=== PATIENT | male | born 1975 | race American Indian/Alaskan Native ===

== ENCOUNTER 2017-10-11 23:20 | Emergency (ER) | payer OTHER ==
[2017-10-11 23:38] VITALS: RESP 17; TEMP 97.8; O2SAT 98
--- NOTE | 2017-10-12 01:40 | ED PDOC ---
HPI: Back Time Seen by Provider: 10/12/17 00:44 Chief Complaint (Nursing): Back Pain Chief Complaint (Provider): Back Pain History Per: Patient History/Exam Limitations: no limitations Onset/Duration Of Symptoms: Days (x2) Current Symptoms Are (Timing): Still Present Additional Complaint(s): Wing Nesbitt is a 42 year old male with a past medical history of asthma who is presenting to the ED with complaints of lower back pain, onset 2 days ago after lifting a heavy cooler. Patient states that the back pain is worse with movement and bending but is alleviated with rest. He denies any urinary symptoms, nausea, vomiting, or fevers. PMD: Antoni Jose Past Medical History Reviewed: Historical Data, Nursing Documentation, Vital Signs Vital Signs: Last Vital Signs Temp 97.8 F 10/11/17 23:31 Pulse 70 10/11/17 23:31 Resp 17 10/11/17 23:31 BP 123/77 10/11/17 23:31 Pulse Ox 98 10/11/17 23:31 - Medical History PMH: Asthma - Surgical History Surgical History: No Surg Hx - Family History Family History: States: Unknown Family Hx - Social History Current smoker - smoking cessation education provided: No Alcohol: Social Drugs: Denies - Home Medications Home Medications: Ambulatory Orders Medication Instructions Recorded Ciprofloxacin/Ciprofloxa HCl 500 mg PO BID #14 tab 03/07/14 [Ciprofloxacin] Ibuprofen [Motrin] 600 mg PO Q8 PRN #20 tab 03/07/14 Ciprofloxacin [Cipro] 1 tab PO BID #14 tab 05/21/15 Cyclobenzaprine [Flexeril] 5 mg PO Q8 PRN #15 tab 05/21/15 Ibuprofen [Motrin] 600 mg PO Q6H PRN #5 tab 05/21/15 Cyclobenzaprine [Cyclobenzaprine 10 mg PO BID #15 tab 10/12/17 HCl] Lidocaine 1 each TP DAILY #10 adh..patch 10/12/17 Naproxen [Naprosyn] 500 mg PO BID #30 tablet 10/12/17 Nitrofurantoin Macrocrystals 100 mg PO BID 5 Days cap 10/12/17 [Macrobid] - Allergies Allergies/Adverse Reactions: Allergies Allergy/AdvReac Type Severity Reaction Status Date / Time No Known Allergies Allergy Verified 05/21/15 12:49 Review of Systems ROS Statement: Except As Marked, All Systems Reviewed And Found Negative Constitutional: Positive for: Fever Gastrointestinal: Negative for: Nausea, Vomiting Genitourinary Male: Negative for: Other (urinary symptoms) Musculoskeletal: Positive for: Back Pain Physical Exam - Reviewed Nursing Documentation Reviewed: Yes Vital Signs Reviewed: Yes - Physical Exam Appears: Positive for: Non-toxic, No Acute Distress Head Exam: Positive for: ATRAUMATIC, NORMAL INSPECTION, NORMOCEPHALIC Skin: Positive for: Normal Color, Warm, DRY Eye Exam: Positive for: EOMI, Normal appearance, PERRL ENT: Positive for: Normal ENT Inspection Neck: Positive for: Normal Cardiovascular/Chest: Positive for: Regular Rate, Rhythm. Negative for: Murmur Respiratory: Positive for: Normal Breath Sounds. Negative for: Respiratory Distress Gastrointestinal/Abdominal: Positive for: Normal Exam, Soft. Negative for: Tenderness Back: Positive for: Other (tenderness to bilateral lumbar paravertebral musculature, with negative straight leg raise) Extremity: Positive for: Normal ROM. Negative for: Pedal Edema, Deformity Neurologic/Psych: Positive for: Alert, Oriented. Negative for: Motor/Sensory Deficits - ECG O2 Sat by Pulse Oximetry: 98 (RA) Pulse Ox Interpretation: Normal Medical Decision Making Medical Decision Making: Time: 00:54 A/P: --42 year old male with back pain after lifting heavy object --Most likely musculoskeletal back pain --No concern for AAA, cauda equine, or spinal cord impingement syndrome --Will provide symptomatic treatment and reevaluate Patient reports a significant improvement in symptoms. Upon provider evaluation patient is medically stable, and requires no further treatment in the ED at this time. Patient will be discharged home. Counseling was provided and all questions were answered regarding diagnosis and need for follow up with PMD. There is agreement to discharge plan. Return if symptoms persist or worsen. Scribe Attestation: Documented by Geeta Galeana, acting as a scribe for Dominic Rubio MD. Provider Scribe Attestation: All medical record entries made by the Scribe were at my direction and personally dictated by me. I have reviewed the chart and agree that the record accurately reflects my personal performance of the history, physical exam, medical decision making, and the department course for this patient. I have also personally directed, reviewed, and agree with the discharge instructions and disposition. Disposition - Clinical Impression Clinical Impression: Back pain, UTI (urinary tract infection) - Patient ED Disposition Is Patient to be Admitted: No - Disposition Referrals: Scott Carlisle MD [Medical Doctor] - Disposition: Routine/Home Disposition Time: 03:25 Condition: STABLE Prescriptions: Cyclobenzaprine [Cyclobenzaprine HCl] 10 mg PO BID #15 tab Lidocaine 1 each TP DAILY #10 adh..patch Naproxen [Naprosyn] 500 mg PO BID #30 tablet Nitrofurantoin Macrocrystals [Macrobid] 100 mg PO BID 5 Days cap Instructions: Low Back Pain (DC), Asymptomatic Bacteriuria Forms: [facility] (Romanian), [facility] ED School/Work Excuse
[2017-10-12 02:44] LABS: SQUAMOUS EPITHIAL 3 /hpf (0-5); URINE BACTERIA RARE (<OCC); URINE BILIRUBIN NEGATIVE (NEGATIVE); URINE BLOOD NEGATIVE (NEGATIVE); URINE CLARITY SLIGHTY-CLOUDY (Clear); URINE COLOR YELLOW (YELLOW); URINE GLUCOSE (UA) NEG (Normal); URINE LEUKOCYTE ESTERASE SMALL Leu/uL (Negative); URINE PROTEIN NEGATIVE (NEGATIVE); URINE UROBILINOGEN 0.2-1.0 mg/dL (0.2-1.0)
[2017-10-12 03:31] VITALS: BP 119/75; PULSE 60
== END 2017-10-12 03:30 | disposition home or self-care (01) ==
LOC: H.ER 23:20
DX: N39.0 Urinary tract infection, site not specified (principal); M54.5 Low back pain
CPT/HCPCS: 81003; 96372; 99283; J1885